=== PATIENT | male | born 1960 | race Caucasian/White ===

== ENCOUNTER 2018-09-22 09:46 | Outpatient (REF) | payer BC, SELFPAY ==
[2018-09-22 21:45] LABS: HCT 46.1 % (40.0-50.0); HGB 15.7 g/dL (13.5-17.5); Mean Corp. HGB Concentration 34.1 g/dL (32.0-36.0); Mean Corpuscular Hemoglobin 29.4 pg (27.0-33.0); Mean Corpuscular Volume 86.3 fL (80-95); Platelet Count 204 x1000/uL (130-400); RBC 5.34 m/cumm (4.50-6.00); RBC Distribution Width 13.3 % (11.8-14.1); White Blood Cell Count 4.44 k/cumm (4.4-10.8)
[2018-09-22 22:00] LABS: Anion Gap 9.5 mmol/L (3-11); BUN 24 mg/dL (7-18); CO2 29.5 mmol/L (21.0-32.0); Calcium 8.7 mg/dL (8.5-10.1); Chloride 103 mmol/L (98-107); Cholesterol 202 mg/dL (50-200); Glucose 103 mg/dL (70-100); HDL Cholesterol 64 mg/dL (40-60); LDL CHOLESTEROL 120 mg/dL (<100); Potassium 4.4 mmol/L (3.5-5.1); Sodium 142 mmol/L (136-145); Triglyceride 42 mg/dL (30-150)
== END 2018-09-22 10:06 ==
LOC: NCHCN 09:46
PROVIDERS: PCP Internal Medicine; Visit Provider Internal Medicine
DX: Z00.00 Encounter for general adult medical examination without abnormal findings (principal); Z87.19 Personal history of other diseases of the digestive system; Z13.220 Encounter for screening for lipoid disorders
CPT/HCPCS: 80048; 80061; 83721; 85027

== ENCOUNTER 2020-01-05 19:08 | Outpatient (REF) | payer BC, SELFPAY ==
[2020-01-06 16:59] LABS: HCT 42.1 % (40.0-50.0); HGB 14.4 g/dL (13.5-17.5); MCH 29.5 pg (27.0-33.0); MCHC 34.2 % (32.0-36.0); MCV 86.3 fL (80-95); MPV 10.8 fL (8.0-11.0); Platelet Count 236 10^3/uL (130-400); RBC 4.88 10^6/uL (4.36-5.78); RDW-SD 40.4 fL; WBC 6.71 10^3/uL (4.4-10.8)
[2020-01-06 17:30] LABS: ALT 43 U/L (16-63); Albumin 4.4 g/dL (3.4-5.0); Alkaline Phosphatase 63 U/L (46-116); Anion Gap 9.6 mmol/L (3-11); BUN 12 mg/dL (7-18); Bilirubin, Total 0.5 mg/dL (0.2-1.0); CO2 27.4 mmol/L (21.0-32.0); CREATININE 0.93 mg/dL (0.70-1.30); Calcium 9.4 mg/dL (8.5-10.1); Chloride 101 mmol/L (98-107); Glucose 92 mg/dL (74-106); Sodium 138 mmol/L (136-145); Total Protein 7.1 g/dL (6.4-8.2)
[2020-01-06 17:49] LABS: AST 21 U/L (15-37)
[2020-01-06 22:46] LABS: TSH 1.72 uIU/mL (0.36-3.74)
[2020-01-09 08:56] LABS: PSA, Screening 0.4 ng/mL (0.0-4.5)
[2020-01-12 16:32] LABS: IgA 93 mg/dL (85-499); Interpretation (See Note); Tissue Transglutaminase IgA <1.2 U/mL (<4.0)
== END 2020-01-05 19:28 ==
LOC: NCHCN 19:08
PROVIDERS: PCP Internal Medicine; Visit Provider Internal Medicine
DX: R19.7 Diarrhea, unspecified (principal); Z12.5 Encounter for screening for malignant neoplasm of prostate; F51.04 Psychophysiologic insomnia
CPT/HCPCS: 80053; 82784; 83516; 84153

== ENCOUNTER 2020-01-06 15:12 | Outpatient (REF) | payer BC, SELFPAY | END 2020-01-06 15:32 | LOC: NCHCN 15:12 | PROVIDERS: PCP Internal Medicine; Visit Provider Internal Medicine | DX: F51.04 Psychophysiologic insomnia (principal); R19.7 Diarrhea, unspecified | CPT/HCPCS: 85027; 84443 ==

== ENCOUNTER 2020-09-27 16:16 | Outpatient (REF) | payer BC, SELFPAY ==
[2020-09-27 21:05] LABS: HCT 42.1 % (40.0-50.0); HGB 14.6 g/dL (13.5-17.5); MCH 29.2 pg (27.0-33.0); MCHC 34.7 % (32.0-36.0); MCV 84.2 fL (80-95); MPV 11.2 fL (8.0-11.0); Platelet Count 232 10^3/uL (130-400); RDW 12.8 % (11.8-14.1); WBC 6.03 10^3/uL (4.4-10.8)
[2020-09-27 21:55] LABS: ALT 148 U/L (16-63); AST 43 U/L (15-37); Albumin 4.2 g/dL (3.4-5.0); Alkaline Phosphatase 162 U/L (46-116); Anion Gap 9.8 mmol/L (3-11); BUN 16 mg/dL (7-18); Bilirubin, Total 0.4 mg/dL (0.2-1.0); CO2 28.2 mmol/L (21.0-32.0); CREATININE 0.8 mg/dL (0.70-1.30); Calcium 9.2 mg/dL (8.5-10.1); Calculated LDL 108 mg/dL (<100); Chloride 104 mmol/L (98-107); Cholesterol 198 mg/dL (<200); Glucose 114 mg/dL (74-106); HDL Cholesterol 50 mg/dL (40-60); Potassium 4.3 mmol/L (3.5-5.1); Sodium 142 mmol/L (136-145); Total Protein 7.3 g/dL (6.4-8.2); Triglyceride 201 mg/dL (<150)
== END 2020-09-27 16:17 | disposition home or self-care (01) ==
LOC: NCHCN 16:16
PROVIDERS: PCP Internal Medicine; Visit Provider Internal Medicine
DX: R42 Dizziness and giddiness (principal); R79.89 Other specified abnormal findings of blood chemistry
CPT/HCPCS: 80053; 80061; 85027

== ENCOUNTER 2020-10-15 18:01 | Outpatient (REF) | payer BC, SELFPAY ==
[2020-10-15 22:13] LABS: ALT 82 U/L (16-63); AST 34 U/L (15-37); Albumin 4.1 g/dL (3.4-5.0); Alkaline Phosphatase 107 U/L (46-116); Bilirubin, Direct 0.1 mg/dL (0.0-0.2); Bilirubin, Total 0.4 mg/dL (0.2-1.0); Total Protein 7.1 g/dL (6.4-8.2)
[2020-10-17 09:31] LABS: Hepatitis B Surface Ag Negative (Negative)
[2020-10-17 10:04] LABS: Hepatitis C Ab w Rflx HCV PCR Negative (Negative)
== END 2020-10-15 18:02 | disposition home or self-care (01) ==
LOC: NCHCN 18:01
PROVIDERS: PCP Internal Medicine; Visit Provider Internal Medicine
DX: R74.8 Abnormal levels of other serum enzymes (principal)
CPT/HCPCS: 80076; 86803; 87340

== ENCOUNTER 2023-06-08 15:40 | Outpatient (REF) | payer MEDICARE, BC, SELFPAY ==
[2023-06-08 21:24] LABS: Abs Immature Grans 0.02 10^3/uL (0.0-0.06); Absolute Basophil Count 0.07 10^3/uL (0.0-0.2); Absolute Eosinophil Count 0.11 10^3/uL (0.0-0.7); Absolute Lymphocyte Count 2.34 10^3/uL (1.2-3.4); Absolute Monocyte Count 0.55 10^3/uL (0.1-0.8); Absolute Neutrophil Count 4.33 10^3/uL (1.2-6.7); Basophils % 0.9; Eosinophils % 1.5; HCT 47.7 % (40.0-50.0); HGB 16.4 g/dL (13.5-17.5); Immature Grans % 0.3; Lymphocytes % 31.5; MCH 28.7 pg (27.0-33.0); MCHC 34.4 % (32.0-36.0); MCV 84 fL (80-95); Monocytes % 7.4; Neutrophils % 58.4; Platelet Count 187 10^3/uL (130-400); RBC 5.71 10^6/uL (4.36-5.78); RDW 12.9 % (11.8-14.1); RDW-SD 39.5 fL; WBC 7.42 10^3/uL (4.4-10.8)
[2023-06-08 21:42] LABS: ALT 42 U/L (16-63); AST 22 U/L (15-37); Albumin 4.4 g/dL (3.4-5.0); Alkaline Phosphatase 73 U/L (46-116); Anion Gap 7.7 mmol/L (3-11); BUN 21 mg/dL (7-18); Bilirubin, Total 0.5 mg/dL (0.2-1.0); CO2 29.3 mmol/L (21.0-32.0); CREATININE 0.8 mg/dL (0.70-1.30); Calcium 9.5 mg/dL (8.5-10.1); Chloride 103 mmol/L (98-107); Estimated GFR 98.83 (mL/min/1.73m2); Glucose 95 mg/dL (74-106); Sodium 140 mmol/L (136-145); TSH (W/Ref FT4) 1.95 uIU/mL (0.36-3.74); Total Protein 7.8 g/dL (6.4-8.2)
[2023-06-09 19:09] LABS: PSA, Screening 1.2 ng/mL (<=4.5)
== END 2023-06-08 15:41 | disposition home or self-care (01) ==
LOC: NCHCN 15:40
PROVIDERS: PCP Internal Medicine; Visit Provider Internal Medicine
DX: R06.00 Dyspnea, unspecified (principal); R74.01 Elevation of levels of liver transaminase levels; Z12.5 Encounter for screening for malignant neoplasm of prostate
CPT/HCPCS: 80053; 84153; 84443; 85025

== ENCOUNTER 2023-10-02 09:36 | Outpatient (REF) | payer MEDICARE, BC, SELFPAY ==
[2023-10-02 16:17] LABS: Calculated LDL 119 mg/dL (<100); Cholesterol 195 mg/dL (<200); HDL Cholesterol 65 mg/dL (40-60); Triglyceride 56 mg/dL (<150)
[2023-10-04 13:43] LABS: Apolipoprotein B, S 98 mg/dL
== END 2023-10-02 09:37 | disposition home or self-care (01) ==
LOC: NCHCN 09:36
PROVIDERS: PCP Internal Medicine; Visit Provider Internal Medicine
DX: Z13.6 Encounter for screening for cardiovascular disorders (principal)
CPT/HCPCS: 80061; 82172

== ENCOUNTER 2024-05-27 15:56 | Outpatient (REF) | payer MEDICARE, BC, SELFPAY ==
[2024-05-27 21:10] LABS: ALT 44 U/L (16-63); AST 20 U/L (15-37); Albumin 4.3 g/dL (3.4-5.0); Alkaline Phosphatase 85 U/L (46-116); Bilirubin, Direct 0.1 mg/dL (0.0-0.2); Bilirubin, Total 0.23 mg/dL (0.2-1.0); Total Protein 7.5 g/dL (6.4-8.2)
== END 2024-05-27 15:57 | disposition home or self-care (01) ==
LOC: NCHCN 15:56
PROVIDERS: PCP Internal Medicine; Visit Provider Internal Medicine
DX: Z51.81 Encounter for therapeutic drug level monitoring (principal)
CPT/HCPCS: 80076

== ENCOUNTER 2024-09-23 08:45 | Outpatient (REF) | payer MEDICARE, BC, SELFPAY ==
[2024-09-23 14:59] LABS: HCT 44.3 % (40.0-50.0); HGB 15.1 g/dL (13.5-17.5); MCH 28.7 pg (27.0-33.0); MCHC 34.1 % (32.0-36.0); MCV 84 fL (80-95); MPV 10.7 fL (8.0-11.0); Platelet Count 221 10^3/uL (130-400); RBC 5.26 10^6/uL (4.36-5.78); RDW 13.2 % (11.8-14.1); RDW-SD 40.4 fL; WBC 5.23 10^3/uL (4.4-10.8)
[2024-09-23 15:54] LABS: ALT 41 U/L (16-63); AST 25 U/L (15-37); Albumin 4.4 g/dL (3.4-5.0); Alkaline Phosphatase 96 U/L (46-116); Anion Gap 7.8 mmol/L (3-11); BUN 18 mg/dL (7-18); Bilirubin, Total 0.5 mg/dL (0.2-1.0); CO2 29.2 mmol/L (21.0-32.0); CREATININE 0.8 mg/dL (0.70-1.30); Calcium 9.2 mg/dL (8.5-10.1); Calculated LDL 129 mg/dL (<100); Chloride 103 mmol/L (98-107); Cholesterol 205 mg/dL (<200); Estimated GFR 97.61 (mL/min/1.73m2); Glucose 112 mg/dL (74-106); HDL Cholesterol 64 mg/dL (>or=40); Potassium 3.8 mmol/L (3.5-5.1); Sodium 140 mmol/L (136-145); Triglyceride 62 mg/dL (<150)
[2024-09-23 22:01] LABS: PSA, Diagnostic 0.8 ng/mL (<=4.5)
== END 2024-09-23 08:46 | disposition home or self-care (01) ==
LOC: NCHCN 08:45
PROVIDERS: PCP Internal Medicine; Visit Provider Internal Medicine
DX: Z00.00 Encounter for general adult medical examination without abnormal findings (principal)
CPT/HCPCS: 80053; 80061; 85027; 84153